=== PATIENT | female | born 1960 | race Caucasian/White ===

== ENCOUNTER 2019-11-14 16:53 | Inpatient (IN) | payer OTHER ==
--- NOTE | 2019-11-14 17:03 | PDOC ---
Rapid Medical Evaluation Chief Complaint: Nausea/Vomiting Time Seen by Provider: 11/14/19 17:01 Medical Evaluation: Allergies Allergy/AdvReac Type Severity Reaction Status Date / Time No Known Allergies Allergy Verified 11/14/19 16:58 11/14/19 17:02 I have performed a brief in-person evaluation of this patient. The patient presents with a chief complaint of:Epigastric pain r/t back w/ n/v. Seen in PMD's office 3 days ago and states blood, stool and urine collected and told she had "an infection in her stomach" and now on triple therapy (amox, lanzaprozole, clarithromycin) for PUD. Pain has improved w/ meds but here because her n/v continues. Pertinent physical exam findings:adamaris uncomfortable w/ minimal ttp to epigastrium I have ordered the following:juan The patient will proceed to the ED for further evaluation. Discharge Disposition - Diagnosis Nausea and vomiting Qualifiers: Vomiting type: unspecified Vomiting Intractability: non-intractable Qualified Code(s): R11.2 - Nausea with vomiting, unspecified - Referrals - Patient Instructions - Post Discharge Activity
[2019-11-14] MEDS ORDERED: ONDANSETRON 4 MG TABLET PO ONE (17:06)
[2019-11-14 17:07] VITALS: BMI 31.8
[2019-11-14] MEDS ORDERED: ONDANSETRON *ODT* 4 MG TABLET ONE (17:19)
[2019-11-14 18:03] LABS: BASO % 0.6 % (0-2.0); EOS % 0.1 % (0-4.5); HEMATOCRIT 46.6 % (32.4-45.2); HEMOGLOBIN 15.3 GM/dL (10.7-15.3); LYMPH % 16.1 % (8-40); MCH 30.2 pg (25.7-33.7); MCHC 32.9 g/dl (32.0-36.0); MEAN PLT VOLUME 9.3 fl (7.5-11.1); MONO % 3.3 % (3.8-10.2); NEUT % 79.9 % (42.8-82.8); PLATELET COUNT 274 K/MM3 (134-434); RBC 5.06 M/mm3 (3.60-5.2); RDW 13.6 % (11.6-15.6)
[2019-11-14 18:23] LABS: ALBUMIN 4.4 g/dl (3.4-5.0); BILIRUBIN,TOTAL 1.3 mg/dL (0.2-1); BLOOD UREA NITROGEN 8.9 mg/dL (7-18); CALCIUM 9.8 mg/dL (8.5-10.1); CREATININE 0.9 mg/dL (0.55-1.3); POTASSIUM 4.4 mmol/L (3.5-5.1); TOT PROT 7.6 g/dl (6.4-8.2)
--- NOTE | 2019-11-14 18:46 | PDOC ---
History of Present Illness - General Chief Complaint: Nausea/Vomiting Stated Complaint: NAUSEA VOMITING Time Seen by Provider: 11/14/19 17:01 - History of Present Illness Initial Comments: Bennett Cui is a 59yo woman with a PMH of constipation, back pain who prsents with RUQ pain and frequent vomiting. She reports that she was seen at [facility] on Tuesday and told that she had gallstones and a gallbladder infection. She was started on flagyl and amoxicillin, which she has been trying to take at home for the past several days. She has had continued vomiting. The emesis is yellow in color; she has not noted bile or blood. She reports that anything she takes PO, she is unable to keep down. She denies any fever, diarrhea, chest pain, SOB , or other new or recent symptoms. Past History - Past Medical History Allergies/Adverse Reactions: Allergies Allergy/AdvReac Type Severity Reaction Status Date / Time No Known Allergies Allergy Verified 11/14/19 16:58 Home Medications: Ambulatory Orders Amoxicillin - [Amoxicillin 500mg Capsule -] 500 mg PO BID 11/14/19 Clarithromycin 500 mg PO BID 11/14/19 Lansoprazole [Prevacid -] 30 mg PO BID 11/14/19 COPD: No - Surgical History Appendectomy: Yes - Immunization History Immunization Up to Date: Yes - Psycho Social/Smoking Cessation Hx Smoking History: Never smoked Number of Cigarettes Smoked Daily: 0 Information on smoking cessation initiated: No Hx Alcohol Use: No Drug/Substance Use Hx: No Substance Use Type: None Review of Systems - Review of Systems Comments:: General: No fevers, no chills, no weight or appetite change, no malaise HEENT: No changes in vision, no changes in hearing, no congestion, no sore throat CV: No chest pain, no palpitations, no LE edema Pulm: No SOB, no cough, no wheezing GI: See HPI : No frequency, no urgency, no dysuria Musc: No back pain, no joint swelling, no recent injury Skin: No rash, no lesions, no erythema Endo: No excessive thirst, no heat/cold intolerance Heme: No unusual bruising or bleeding, no swollen glands Neuro: No syncope, no numbness/tingling, no focal weakness Vasc: No claudication Psych: No recent change in mood, no SI or HI *Physical Exam - Vital Signs Last Vital Signs Temp Pulse Resp BP Pulse Ox 98.0 F 87 17 147/92 98 11/14/19 16:58 11/14/19 16:58 11/14/19 16:58 11/14/19 16:58 11/14/19 16:58 - Physical Exam General: Comfortable, no acute distress HEENT: Atraumatic, PERRL, EOMI, MMM, voice normal, normal neck ROM Cards: RRR, no murmur appreciated Pulm: Comfortable on room air, clear to auscultation bilaterally Abd: Soft, nondistended. Epigastric and RUQ TTP Ext: Atraumatic. No LE edema. ROM intact. WWP Skin: Normal color, no rashes or lesions Neuro: A&Ox3, CN grossly intact, normal speech, motor/sensory grossly intact and symmetric Psych: Mood appropriate to situation ED Treatment Course - LABORATORY CBC & Chemistry Diagram: 11/14/19 17:30 11/14/19 17:30 - ADDITIONAL ORDERS Additional order review: Laboratory Results 11/14/19 11/14/19 17:30 17:30 Sodium 139 Potassium 4.4 Chloride 103 Carbon Dioxide 31 Anion Gap 6 L BUN 8.9 Creatinine 0.9 Est GFR (CKD-EPI)AfAm 82.26 Est GFR (CKD-EPI)NonAf 70.98 Random Glucose 117 H Calcium 9.8 Total Bilirubin 1.3 H AST 27 ALT 39 Alkaline Phosphatase 85 Total Protein 7.6 Albumin 4.4 Lipase 103 11/14/19 17:30 RBC 5.06 MCV 92.0 MCHC 32.9 RDW 13.6 MPV 9.3 Neutrophils % 79.9 D Lymphocytes % 16.1 D Monocytes % 3.3 L Eosinophils % 0.1 D Basophils % 0.6 - RADIOLOGY Radiology Studies Ordered: Category Date Time Status ABDOMEN US [US] Stat Ultrasound 11/14/19 18:36 Ordered - Medications Given in the ED: ED Medications Discontinued Medications Generic Name Dose Route Start Last Admin Trade Name Freq PRN Reason Stop Dose Admin Ondansetron HCl 4 mg 11/14/19 17:06 11/14/19 17:20 Zofran - PO 11/14/19 17:07 4 mg ONCE ONE Administration Medical Decision Making - Medical Decision Making 11/14/19 18:46 Bennett Cui is a 59yo woman with a PMH of constipation, back pain, recently diagnosed with a "gallbladder problem" and started on antibiotics last Tuesday, who presents with persistent RUQ pain and vomiting. - Labs ordered from E. No concerning abnormalities - Zofran given. No vomiting while in the ED - LUQ pain on exam. Will repeat abd US to evaluate gallbladder 11/14/19 20:20 - Ultrasound completed. Several gallstones noted. - Per radiology report, no wall thickening, no bile duct dilation, no pericholecystic fluid - Given normal labs, no sign of cholecystitis on ultrasound, symptoms may be biliary colic with adverse effects of antibiotics - Will reassess, ABHIJEET rivera 11/14/19 21:15 - Reassessed. Still has RUQ tenderness - Spoke to Dr Brody, surgery, regarding persistent pain despite negative labs. Recommending that if pain has been present 5 days, should likely be admitted for HIDA and possible cholecystectomy - On additional questioning, pt confirms that her pain has been present for 5 days without resolving. - Will admit for further workup Discussed with Dr Gina Danielson PGY2 Discharge - Discharge Information Problems reviewed: Yes Clinical Impression/Diagnosis: RUQ pain Nausea and vomiting Qualifiers: Vomiting type: unspecified Vomiting Intractability: non-intractable Qualified Code(s): R11.2 - Nausea with vomiting, unspecified Cholelithiases Qualifiers: Cholelithiasis location: gallbladder Cholecystitis presence: without cholecystitis Biliary obstruction: without biliary obstruction Qualified Code(s) : K80.20 - Calculus of gallbladder without cholecystitis without obstruction Condition: Stable - Admission Yes - Follow up/Referral - Patient Discharge Instructions - Post Discharge Activity
--- NOTE | 2019-11-14 20:04 | PDOC ---
Attending Attestation - Resident Resident Name: JagjitJane - ED Attending Attestation I have performed the following: I have examined & evaluated the patient, The case was reviewed & discussed with the resident, I agree w/resident's findings & plan - HPI HPI: 11/14/19 21:26 see resident hpi - Physicial Exam PE: 11/14/19 21:26 agree with resident exam - Medical Decision Making 11/14/19 21:26 59-year-old female with upper abdominal pain Ultrasound consistent with gallbladder disease with no specific findings consistent with acute cholecystitis There is a mild elevation of patient's total bilirubin Due to persistent pain, case was discussed with surgery who recommends admission for HIDA scan and further evaluation
[2019-11-14] MEDS ORDERED: ACETAMINOPHEN 1000 MG/100 ML VIAL (NON FORMULARY) IVPB ONE (20:35)
[2019-11-14] MEDS ORDERED: SODIUM CHLORIDE 1,000 ML IV SCH ×2 (21:30→22:45)
[2019-11-14] MEDS ORDERED: KETOROLAC TROMETHAMINE 15 MG/ML VIAL IVPUSH PRN (22:32)
[2019-11-14] MEDS ORDERED: ACETAMINOPHEN 325 MG TABLET (FP) PO PRN (22:32)
--- NOTE | 2019-11-14 22:49 | HP ---
CHIEF COMPLAINT: RUQ pain and nausea PCP: Dr Recio HISTORY OF PRESENT ILLNESS: 59 yo F no significant medical history presents to the ED for RUQ pain, nausea and vomiting. pt states these symptoms began 3 weeks ago. she states that the abdominal pain is RUQ and is worse when she eats and with movement. she states that the nausea and vomiting started this week. She states that she saw a doctor earlier last week who prescribed her medications. pt states that she has not been able to eat well. she denies fevers , chills. she denies recent travel ER course was notable for: (1)IVF (2)Acetaminophen (3)Surgery consult Recent Travel: denies PAST MEDICAL HISTORY: none PAST SURGICAL HISTORY: appendectomy, breast surgery, hysterectomy, " intestinal surgery" Social History: Smoking:denies Alcohol:denies Drugs: denies Allergies No Known Allergies Allergy (Verified 11/14/19 16:58) HOME MEDICATIONS: Home Medications Medication Instructions Recorded Amoxicillin - [Amoxicillin 500mg 500 mg PO BID 11/14/19 Capsule -] Clarithromycin 500 mg PO BID 11/14/19 Lansoprazole [Prevacid -] 30 mg PO BID 11/14/19 REVIEW OF SYSTEMS CONSTITUTIONAL: Absent: fever, chills, diaphoresis, generalized weakness, malaise, loss of appetite, weight change HEENT: Absent: rhinorrhea, nasal congestion, throat pain, throat swelling, difficulty swallowing, mouth swelling, ear pain, eye pain, visual changes CARDIOVASCULAR: Absent: chest pain, syncope, palpitations, irregular heart rate, lightheadedness , peripheral edema RESPIRATORY: Absent: cough, shortness of breath, dyspnea with exertion, orthopnea, wheezing, stridor, hemoptysis GASTROINTESTINAL: Present: Abdominal pain, nausea, vomiting Absent:abdominal distension,diarrhea, constipation, melena, hematochezia GENITOURINARY: Absent: dysuria, frequency, urgency, hesitancy, hematuria, flank pain, genital pain MUSCULOSKELETAL: Absent: myalgia, arthralgia, joint swelling, back pain, neck pain SKIN: Absent: rash, itching, pallor HEMATOLOGIC/IMMUNOLOGIC: Absent: easy bleeding, easy bruising, lymphadenopathy, frequent infections ENDOCRINE: Absent: unexplained weight gain, unexplained weight loss, heat intolerance, cold intolerance NEUROLOGIC: Absent: headache, focal weakness or paresthesias, dizziness, unsteady gait, seizure, mental status changes, bladder or bowel incontinence PSYCHIATRIC: Absent: anxiety, depression, suicidal or homicidal ideation, hallucinations. PHYSICAL EXAMINATION Vital Signs - 24 hr 11/14/19 16:58 Temperature 98.0 F Pulse Rate 87 Respiratory 17 Rate Blood Pressure 147/92 O2 Sat by Pulse 98 Oximetry (%) GENERAL: Awake, alert, and fully oriented, in no acute distress. HEAD: Normal with no signs of trauma. EYES: Pupils equal, round and reactive to light, extraocular movements intact, sclera anicteric EARS, NOSE, THROAT: oropharynx clear without exudates. Moist mucous membranes. NECK: Normal range of motion, supple without lymphadenopathy, JVD, or masses. LUNGS: Breath sounds equal, clear to auscultation bilaterally. No wheezes, and no crackles. No accessory muscle use. HEART: Regular rate and rhythm, normal S1 and S2 without murmur, rub or gallop. ABDOMEN: Soft, tender to palpation of RUQ and RLQ. + murphys not distended, normoactive bowel sounds MUSCULOSKELETAL: Normal range of motion at all joints. No bony deformities or tenderness. No CVA tenderness. UPPER EXTREMITIES: 2+ pulses, warm, well-perfused. No cyanosis. No clubbing. No peripheral edema. LOWER EXTREMITIES: 2+ pulses, warm, well-perfused. No calf tenderness. No peripheral edema. NEUROLOGICAL: Cranial nerves II-XII intact. Normal speech. PSYCHIATRIC: Cooperative. Good eye contact. Appropriate mood and affect. SKIN: Warm, dry, normal turgor, no rashes or lesions noted, normal capillary refill. Laboratory Results - last 24 hr 11/14/19 11/14/19 11/14/19 17:30 17:30 17:30 WBC 7.0 RBC 5.06 Hgb 15.3 Hct 46.6 H D MCV 92.0 MCH 30.2 MCHC 32.9 RDW 13.6 Plt Count 274 MPV 9.3 Absolute Neuts (auto) 5.6 Neutrophils % 79.9 D Lymphocytes % 16.1 D Monocytes % 3.3 L Eosinophils % 0.1 D Basophils % 0.6 Nucleated RBC % 0 Sodium 139 Potassium 4.4 Chloride 103 Carbon Dioxide 31 Anion Gap 6 L BUN 8.9 Creatinine 0.9 Est GFR (CKD-EPI)AfAm 82.26 Est GFR (CKD-EPI)NonAf 70.98 Random Glucose 117 H Calcium 9.8 Total Bilirubin 1.3 H AST 27 ALT 39 Alkaline Phosphatase 85 Total Protein 7.6 Albumin 4.4 Lipase 103 ASSESSMENT/PLAN: 59 yo F with no PMH presents with abdominal pain, nausea, vomiting. Admitted to medicine for cholelithiasis Cholelithiasis - U/S findings above. - no common bile duct dilation - no leukocytosis, no fevers - Surgery ( Dr. Brody) consulted and recommends HIDA and possibly cholecystectomy -continue close monitoring -will continue prevacid, amox, clarithro as it is most [facility]. [facility] - monitor lytes - continue IVF @ 100mls/ hr - NPO for possible cholecystecomy DVT ppx: SCDs Dispo: Admit to Medicine ATTENDING PHYSICIAN STATEMENT I saw and evaluated the patient. I reviewed the resident's note and discussed the case with the resident. I agree with the resident's findings and plan as documented. SUBJECTIVE: OBJECTIVE: ASSESSMENT AND PLAN:
[2019-11-14 22:59] LABS: EPI CELLS 5.1 /HPF (0-5/HPF); HYALINE CASTS 2 /lpf (0-8); URINE APPEARANCE CLEAR; URINE BACTERIA 2.9 /hpf (NEGATIVE); URINE BILIRUBIN NEGATIVE (NEGATIVE); URINE COLOR YELLOW; URINE GLUCOSE (UA) NEGATIVE (NEGATIVE); URINE KETONE 1+ (NEGATIVE); URINE LEUK ESTERASE TRACE (NEGATIVE); URINE NITRITE NEGATIVE (NEGATIVE); URINE PROTEIN NEGATIVE (NEGATIVE); URINE RBC 50 /hpf (0-4); URINE UROBILINOGEN 0.2 mg/dL (0.2-1.0); URINE WBC 17 /hpf (0-5)
--- NOTE | 2019-11-14 23:23 | PN ---
Teaching Attending Note Name of Resident: Neha Salazar ATTENDING PHYSICIAN STATEMENT I saw and evaluated the patient. I reviewed the resident's note and discussed the case with the resident. I agree with the resident's findings and plan as documented. SUBJECTIVE: 59yo woman with a PMH of constipation, back pain complains of right upper quadrant pain with multiple Nonbilious nonbloody episodes of vomiting. Patient was seen on 11/09 at [facility] for similar complaints and was sent home on Flagyl and amoxicillin. She was told that she might have possible cholecystitis. Her symptoms have worsened for the past several days and she had continued vomiting, nonbloody, nonbilious. Unable to tolerate p.o. Denied any fever or diarrhea or tenderness of breath. OBJECTIVE: Last Vital Signs Temp Pulse Resp BP Pulse Ox 96.8 F L 63 17 102/64 100 11/14/19 23:21 11/14/19 23:21 11/14/19 16:58 11/14/19 23:21 11/14/19 23:21 GENERAL: Well developed, well nourished. Awake and alert. No acute distress. HEENT: Normocephalic, atraumatic. PERRLA, EOMI. No conjunctival pallor. Sclera are non- icteric. Moist mucous membranes. Oropharynx is clear. NECK: Supple. Full ROM. No JVD. Carotid pulses 2+ and symmetric, without bruits. No thyromegaly. No lymphadenopathy. CARDIOVASCULAR: Regular rate and rhythm. No murmurs, rubs, or gallops. Distal pulses are 2+ and symmetric. PULMONARY: No evidence of respiratory distress. Lungs clear to auscultation bilaterally. No wheezing, rales or rhonchi. ABDOMINAL: Soft. Right upper quadrant tenderness on palpation. Non-distended. No rebound or guarding. No organomegaly. Normoactive bowel sounds. MUSCULOSKELETAL Normal range of motion at all joints. No bony deformities or tenderness. No CVA tenderness. EXTREMITIES: No cyanosis. No clubbing. No edema. No calf tenderness. SKIN: Warm and dry. Normal capillary refill. No rashes. No jaundice. NEUROLOGICAL: Alert, awake, appropriate. Cranial nerves 2-12 intact. No deficits to light touch and temperature in face, upper extremities and lower extremities. No motor deficits in the in face, upper extremities and lower extremities. Normoreflexic in the upper and lower extremities. Normal speech. Toes are down- going bilaterally. Gait is normal without ataxia. PSYCHIATRIC: Cooperative. Good eye contact. Appropriate mood and affect. Abnormal Lab Results 11/14/19 11/14/19 11/14/19 17:30 17:30 22:36 Hct 46.6 H D Monocytes % 3.3 L Anion Gap 6 L Random Glucose 117 H Total Bilirubin 1.3 H Urine Ketones 1+ H Urine Blood 2+ H Imaging studies reviewed Ultrasound report of right upper quadrant was appreciated. Cholelithiasis was seen without definite sonographic evidence of acute cholecystitis. There was no definite biliary tract dilatation. ASSESSMENT AND PLAN: 59-year-old woman with multiple episodes of nausea and vomiting. Clinically appears to be cholecystitis although No radiological evidence at this time. surgery recommended further evaluation with HIDA scan. Mild hyper bilirubinemia suggest possible hepatobiliary involvement. No fever or leukocytosis to suggest infection at this time. No role for antibiotics at this time. Admit to [facility] Surgery consult IV fluid hydration Zofran if continued nausea and vomiting Empiric Pepcid We will order HIDA scan Keep n.p.o. for now for possible cholecystectomy BGM's every 6 hours Hepatic paneltrend EKG DVT prophylaxis with SCDs
[2019-11-15] MEDS ORDERED: ACETAMINOPHEN 325 MG TABLET (FP) ONE (03:15)
[2019-11-15] MEDS ORDERED: KETOROLAC TROMETHAMINE 15 MG/ML VIAL ONE (03:16)
[2019-11-15] MEDS ORDERED: DEXTROSE 50%-WATER - 25 GM/50 ML VIAL IVPUSH ONE (06:05)
[2019-11-15 07:09] LABS: BASO % 0.2 % (0-2.0); EOS % 2.7 % (0-4.5); HEMOGLOBIN 13.7 GM/dL (10.7-15.3); LYMPH % 27.1 % (8-40); MCH 30.5 pg (25.7-33.7); MCHC 33.5 g/dl (32.0-36.0); MEAN CELL VOLUME 91.1 fl (80-96); MONO % 6.2 % (3.8-10.2); NEUT % 63.8 % (42.8-82.8); PLATELET COUNT 216 K/MM3 (134-434); WHITE BLOOD COUNT 6.7 K/mm3 (4.0-10.0)
[2019-11-15 07:15] LABS: INR 1.04 (0.83-1.09); PROTHROMBIN TIME (PATIENT) 12.3 SEC (9.7-13.0)
[2019-11-15 07:18] LABS: ACTIVATED PTT 33.8 SECONDS (25.2-36.5)
--- NOTE | 2019-11-15 07:33 | CONSULT ---
- Consultation REQUESTING PROVIDER: CONSULT REQUEST: We have been asked to surgically evaluate this patient for cholelithiasis/ acute cholecystitis PCP:Bennett Jacobs MD HISTORY OF PRESENT ILLNESS: Bennett Cui is a 59yo woman with a PMH of constipation, back pain who prsents with RUQ pain and frequent vomiting. She reports that she was seen at [facility] on Tuesday and told that she had gallstones and a gallbladder infection. She was started on flagyl and amoxicillin, which she has been trying to take at home for the past several days. She has had continued vomiting and three episodes of diarrhea. The emesis is yellow in color; she has not noted bile or blood. She reports that anything she takes PO, she is unable to keep down. She denies any fever, chest pain, SOB , or other new or recent symptoms. She states that she has experienced this pain in the RUQ before but did not go the the hospital for it. Past History - Past Medical History Allergies/Adverse Reactions: Allergies Allergy/AdvReac Type Severity Reaction Status Date / Time No Known Allergies Allergy Verified 11/14/19 16:58 Home Medications: Ambulatory Orders Amoxicillin - [Amoxicillin 500mg Capsule -] 500 mg PO BID 11/14/19 Clarithromycin 500 mg PO BID 11/14/19 Lansoprazole [Prevacid -] 30 mg PO BID 11/14/19 COPD: No - Surgical History Appendectomy: Yes - Immunization History Immunization Up to Date: Yes - Psycho Social/Smoking Cessation Hx Smoking History: Never smoked Number of Cigarettes Smoked Daily: 0 Information on smoking cessation initiated: No Hx Alcohol Use: No Drug/Substance Use Hx: No Substance Use Type: None Review of Systems - Review of Systems Comments:: General: No fevers, no chills, no weight or appetite change, no malaise HEENT: No changes in vision, no changes in hearing, no congestion, no sore throat CV: No chest pain, no palpitations, no LE edema Pulm: No SOB, no cough, no wheezing GI: See HPI : No frequency, no urgency, no dysuria Musc: no joint swelling, no recent injury Skin: No rash, no lesions, no erythema Endo: No excessive thirst, no heat/cold intolerance Heme: No unusual bruising or bleeding, no swollen glands Neuro: No syncope, no numbness/tingling, no focal weakness Vasc: No claudication Psych: No recent change in mood, no SI or HI *Physical Exam - Vital Signs Last Vital Signs Temp Pulse Resp BP Pulse Ox 98.0 F 87 17 147/92 98 11/14/19 16:58 11/14/19 16:58 11/14/19 16:58 11/14/19 16:58 11/14/19 16:58 - Physical Exam General: Comfortable, no acute distress HEENT: Atraumatic, PERRL, voice normal, normal neck ROM Pulm: unlabore resp on RA, Abd: Obese, Soft, nondistended. Epigastric and RUQ TTP Ext: Atraumatic. moving all extremities without limitation. Skin: Normal color, no rashes or lesions Neuro: A&Ox3, CN grossly intact, normal speech, motor/sensory grossly intact and symmetric Psych: Mood appropriate to situation CBC, BMP 11/15/19 06:45 Abnormal Lab Results 11/14/19 11/14/19 11/14/19 17:30 17:30 22:36 Hct 46.6 H D Monocytes % 3.3 L Anion Gap 6 L Random Glucose 117 H Total Bilirubin 1.3 H Urine Ketones 1+ H Urine Blood 2+ H Ultrasound consistent with cholelithiasis. Problem List - Problems (1) Cholelithiases Assessment/Plan: 59yo with cholelithiasis, with acute cholecystitis upon clincal correlation and mild elevation of patient's total bilirubin. Patient will need laparoscopic cholecystectomy today. 1) cancel HIDA scan per Dr Brody 2) NPO for OR with Dr Brody today 11/15 3) Zosyn started for ABX coverage 4) pain control and antiemetics 5) Surgical time pending. Code(s): K80.20 - CALCULUS OF GALLBLADDER W/O CHOLECYSTITIS W/O OBSTRUCTION Qualifiers: Cholelithiasis location: gallbladder Cholecystitis presence: without cholecystitis Biliary obstruction: without biliary obstruction Qualified Code(s): K80.20 - Calculus of gallbladder without cholecystitis without obstruction
[2019-11-15 07:47] LABS: ALBUMIN 3.6 g/dl (3.4-5.0); BILIRUBIN,TOTAL 1.4 mg/dL (0.2-1); BLOOD UREA NITROGEN 9.7 mg/dL (7-18); CALCIUM 8.7 mg/dL (8.5-10.1); CREATININE 1.1 mg/dL (0.55-1.3); MAGNESIUM 2.1 mg/dL (1.8-2.4); PHOSPHOROUS 3.2 mg/dL (2.5-4.9); POTASSIUM 4.1 mmol/L (3.5-5.1); TOT PROT 6.1 g/dl (6.4-8.2)
[2019-11-15] MEDS ORDERED: PIPERACILLIN/TAZOB 4.5 GM 4.5 GM in DEXTROSE 5%-WATER 100 ML IVPB ONE (09:00)
[2019-11-15] MEDS ORDERED: DEXTROSE 5%-LACTATED RINGERS 1,000 ML IV SCH ×2 (09:00→12:42)
[2019-11-15] MEDS ORDERED: PIPERACILLIN/TAZOB 4.5 GM 4.5 GM/100 ML BAG IVPB ONE (09:04)
[2019-11-15] MEDS ORDERED: PANTOPRAZOLE 40 MG TABLET (FP) PO SCH (10:00)
[2019-11-15] MEDS ORDERED: FAMOTIDINE 20 MG TABLET PO SCH (10:00)
[2019-11-15] MEDS ORDERED: CLARITHROMYCIN 500 MG TABLET (UD) PO SCH (10:00)
[2019-11-15] MEDS ORDERED: PIPERACILLIN/TAZOB 4.5 GM 4.5 GM in DEXTROSE 5%-WATER 100 ML IVPB SCH (10:00)
[2019-11-15] MEDS ORDERED: AMOXICILLIN 500 MG CAPSULE (FP) PO SCH (10:00)
[2019-11-15] MEDS ORDERED: PROPOFOL 20 ML ONE ×2 (10:18→12:02)
[2019-11-15] MEDS ORDERED: MIDAZOLAM HCL 2 MG/2 ML SINGLE DOSE VIAL ONE (10:18)
[2019-11-15] MEDS ORDERED: fentaNYL CITRATE 250 MCG/5 ML VIAL ONE (10:18)
[2019-11-15] MEDS ORDERED: ROCURONIUM BROMIDE 50 MG/5 ML SYRINGE ONE (10:19)
--- NOTE | 2019-11-15 10:26 | PN ---
Teaching Attending Note Name of Resident: Augustus Rodrigez ATTENDING PHYSICIAN STATEMENT I saw and evaluated the patient. I reviewed the resident's note and discussed the case with the resident. I agree with the resident's findings and plan as documented. Seen and examined; please see resident note for further historical information. I personally verified all [place] historical information and exam findings. Personally interpreted all imaging and diagnostics and reviewed appropriate consults. I reviewed all labs and vital signs as per resident note and EMR as documented. I agree with the above assessment and plan unless supplemented by myself in the following. 10 item review of systems completed and is negative aside from as discussed in the subjective data in my own/the resident documentation. VS, labs, imaging reviewed NAD, AAO, resting comfortably in bed. RRR s1/2 no mgr Normal muscle tone, moves all 5 extremities with normal apparent strength Neck is supple, trachea midline, no haydee LN Lungs CTAB with sym expansion Right-sided tenderness with +BS no haydee organomegaly CN2-12 wnl; no FND NC AT EOMI PERRLA Normal mood, appropriate behavior, euthymic affect No skin breakdown or rashes noted Assessment and plan: Patient presents to the hospital with abdominal pain. Found to have suspicion for consult cholecystitis with cholelithiasis noted on imaging. Patient was found intraoperatively to have acute cholecystitis with pale distended edematous gallbladder and ventral hernia at the falciform and umbilical hernia as well. Is doing well postop. We will follow-up further recommendations per surgery. Discharge planning within 24 to 48 hours
[2019-11-15] MEDS ORDERED: oxyCODONE HCL 5 MG TABLET PO PRN (11:28)
[2019-11-15] MEDS ORDERED: morphine SULFATE 4 MG/ML VIAL IVPB PRN ×2 (11:28→17:24)
[2019-11-15] MEDS ORDERED: IBUPROFEN 800 MG/8 ML IJ IVPB ONE (11:28)
[2019-11-15] MEDS ORDERED: ONDANSETRON 4 MG/2 ML VIAL IVPUSH PRN (11:28)
[2019-11-15] MEDS ORDERED: IBUPROFEN 800 MG/8 ML IJ IVPB PRN (11:28)
[2019-11-15] MEDS ORDERED: LACTATED RINGERS SOLUTION 1,000 ML IV SCH (11:30)
--- NOTE | 2019-11-15 11:49 | EKG ---
Test Reason : Blood Pressure : / mmHG Vent. Rate : 062 BPM Atrial Rate : 062 BPM P-R Int : 132 ms QRS Dur : 084 ms QT Int : 440 ms P-R-T Axes : 010 048 051 degrees QTc Int : 446 ms NORMAL SINUS RHYTHM NORMAL ECG WHEN COMPARED WITH ECG OF 08-FEB-2014 16:43, NO SIGNIFICANT CHANGE WAS FOUND Confirmed by YOLY ROJAS MD ([id number]) on 11/15/2019 11:49:42 AM Referred By: Confirmed By:YOLY ROJAS MD
[2019-11-15] MEDS ORDERED: NEOSTIGMINE METHYLSULFATE 0.5 MG/ML - 10 ML MDV ONE (11:53)
[2019-11-15] MEDS ORDERED: GLYCOPYRROLATE 0.2 MG/1 ML VIAL ONE (11:54)
--- NOTE | 2019-11-15 12:07 | CONS ---
DATE OF CONSULTATION: 11/15/2019 REASON FOR CONSULTATION: Acute cholecystitis, cholelithiasis. This is an emergency room consultation at the request of the emergency room physician. BRIEF HISTORY: This is a 59-year-old female who has had several days of right upper quadrant pain and nausea. She was seen at [facility] Emergency Room where she was diagnosed with acute cholecystitis and sent home on antibiotics. She then came to [facility] because of persistent pain. Here she had an ultrasound, which confirmed gallstones with borderline thickening. The gallbladder was distended. There was no pericholecystic fluid. The bile duct was normal size. Her labs were unremarkable. She was admitted for persistent pain. Repeat labs this morning do not show an increase in her liver function tests, and the patient is still in pain. Request was made for surgical evaluation. PAST MEDICAL HISTORY: Significant for constipation and back pain. PAST SURGICAL HISTORY: Includes a hysterectomy for fibroids as well as an appendectomy. SOCIAL HISTORY: Negative for alcohol. Negative for tobacco. FAMILY HISTORY: Noncontributory. ALLERGIES: She has no known drug allergies. MEDICATIONS: She takes no home medications except what was prescribed by the [facility] Emergency Room. REVIEW OF SYSTEMS: General: Denies fatigue or malaise. Cardiac: Denies chest pain or palpitations. Respiratory: Denies shortness of breath or wheeze. Gastrointestinal: As in HPI. Admits to nausea. Admits to vomiting. Denies recent weight loss. Denies blood in her stool. Denies diarrhea. Denies blood in her vomit. Genitourinary: Denies dysuria. Musculoskeletal: Denies joint pain. Psychiatric: Denies anxiety, depression, or hearing voices. PHYSICAL EXAMINATION: General: This is an obese 59-year-old female in no distress. Vital Signs: She is afebrile. Has been since admission. HEENT: Her head is normocephalic. Sclerae anicteric. Neck: Supple. Chest: Clear. Abdomen: Soft. There is a well-healed Pfannenstiel incision. There is perhaps a laparoscopic scar at her umbilicus. She has significant right upper quadrant tenderness with rebound and guarding. The rest of her abdominal exam is benign. Extremities: No edema. DIAGNOSTIC DATA: Review of her laboratory, her white blood cell count is 6.7. Her chemistries are unremarkable. Her urinalysis is unremarkable. ASSESSMENT: This is a 59-year-old female with right upper quadrant pain, right upper quadrant tenderness with rebound. Ultrasound findings of a distended gallbladder with gallstones and mild thickening. She has been treated on antibiotics for acute cholecystitis. Clinically, this is acute cholecystitis failing medical management. At this point, we will proceed with cholecystectomy. Risks and benefits of surgery have been explained to the patient in detail. These are including, but not limited to, the possibility of conversion to open, the possibility of common bile duct injury, the possibility of cystic duct stump melissa, the possibility of injury to viscera, the possibility of blood loss requiring blood transfusion, possibility of future hernia, possibility of future obstruction plus a multitude of medical risks including, but not limited to, cardiac, neurologic, pulmonary, and vascular complications, even . The patient understands these risks and is agreeable to surgery. She has also been offered continued medical management of cholecystitis as well as percutaneous drainage and declines both options. She prefers a more definitive nature of surgery, the likely decreased length of stay, and the prevention of future recurrence. At this point, she is on Zosyn antibiotic, which she received this morning, and she will continue antibiotic and make plans for surgery. DO SOTO VALENZUELA/[id number]
--- NOTE | 2019-11-15 12:19 | OP ---
Operative Note - Note: Operative Date: 11/15/19 Pre-Operative Diagnosis: acute cholecystitis, cholelithiasis Operation: laparoscopic cholecystectomy, lavage Findings: acute cholecystitis, pale distended, edematous gb, ventral hernia at falciform, umbilical hernia Post-Operative Diagnosis: Same as Pre-op Surgeon: Augustus Brody Rug Measurer: Francisco Osorio Anesthesiologist/FRESH MEAT GRADER: Linwood Sales Specimens Removed: gb Estimated Blood Loss (mls): 10 Operative Report Dictated: Yes
--- NOTE | 2019-11-15 12:22 | SURG ---
Surgery Video Engineer Note Video Engineer: Francisco Osorio PA-C Date of Service: 11/15/19 Diagnosis: acute cholecystitis, cholelithiasis Procedure: laparoscopic cholecystectomy, lavage I was present for the entirety of the operative procedure. For further detail, please refer to operative report. Visit type - Case Type Case Type: ED Admission - Emergency Emergency Visit: Yes ED Registration Date: 11/14/19 Care time: The patient presented to the Emergency Department on the above date and was hospitalized for further evaluation of their emergent condition. - New patient This patient is new to me today: Yes Date on this admission: 11/15/19 - Critical Care Critical Care patient: No
[2019-11-15] MEDS ORDERED: ACETAMINOPHEN 325 MG TABLET (FP) PO PRN (12:42)
[2019-11-15] MEDS ORDERED: KETOROLAC TROMETHAMINE 15 MG/ML VIAL IVPUSH PRN (12:42)
--- NOTE | 2019-11-15 12:57 | PN ---
Physical Exam: SUBJECTIVE: Patient seen and examined at the bedside. Patient stated that she continued to have abdominal pain and did not feel like eating. She endorsed minor nausea and no further vomiting since yesterday. She denied fevers, chills , diarrhea, constipation, chest pain, sob, dizziness, lightheadedness, visual changes, dysuria, hematuria, frequency, hesitancy. OBJECTIVE: Vital Signs Period Temp Pulse Resp BP Sys/Rios Pulse Ox Last 24 Hr 96.8 F-98.0 F 63-87 16-18 102-147/55-92 98-100 GENERAL: The patient is awake, alert, and fully oriented, in no acute distress. Hong Konger speaking. HEAD: Normal with no signs of trauma. EYES: PERRL, extraocular movements intact, sclera anicteric, conjunctiva clear. ENT: Oropharynx clear without exudates, moist mucous membranes. NECK: Trachea midline, full range of motion, supple. LUNGS: Breath sounds equal, clear to auscultation bilaterally, no wheezes, no crackles, no accessory muscle use. HEART: Regular rate and rhythm, S1, S2 without murmur, rub. ABDOMEN: Soft, tender in the RUQ, Beebe's positive, nondistended, normoactive bowel sounds, no guarding, no rebound, no masses. EXTREMITIES: 2+ pulses, warm, well-perfused, no edema. NEUROLOGICAL: Cranial nerves II through XII grossly intact. 5/5 muscle strength bilaterally upper and lower extremities. PSYCH: Normal mood, normal affect. SKIN: Warm, dry, normal turgor, no rashes or lesions noted. Laboratory Results - last 24 hr 11/14/19 11/14/19 11/14/19 17:30 17:30 17:30 WBC 7.0 RBC 5.06 Hgb 15.3 Hct 46.6 H D MCV 92.0 MCH 30.2 MCHC 32.9 RDW 13.6 Plt Count 274 MPV 9.3 Absolute Neuts (auto) 5.6 Neutrophils % 79.9 D Lymphocytes % 16.1 D Monocytes % 3.3 L Eosinophils % 0.1 D Basophils % 0.6 Nucleated RBC % 0 PT with INR INR PTT (Actin FS) Sodium 139 Potassium 4.4 Chloride 103 Carbon Dioxide 31 Anion Gap 6 L BUN 8.9 Creatinine 0.9 Est GFR (CKD-EPI)AfAm 82.26 Est GFR (CKD-EPI)NonAf 70.98 POC Glucometer Random Glucose 117 H Calcium 9.8 Phosphorus Magnesium Total Bilirubin 1.3 H AST 27 ALT 39 Alkaline Phosphatase 85 Total Protein 7.6 Albumin 4.4 Lipase 103 Urine Color Urine Appearance Urine pH Ur Specific [place] Urine Protein Urine Glucose (UA) Urine Ketones Urine Blood Urine Nitrite Urine Bilirubin Urine Urobilinogen Ur Leukocyte Esterase Urine WBC (Auto) Urine RBC (Auto) Urine Casts (Auto) U Epithel Cells (Auto) Urine Bacteria (Auto) Blood Type Antibody Screen 11/14/19 11/15/19 11/15/19 22:36 05:59 06:45 WBC 6.7 RBC 4.50 Hgb 13.7 Hct 41.0 MCV 91.1 MCH 30.5 MCHC 33.5 RDW 14.0 Plt Count 216 D MPV 9.0 Absolute Neuts (auto) 4.3 Neutrophils % 63.8 D Lymphocytes % 27.1 D Monocytes % 6.2 D Eosinophils % 2.7 D Basophils % 0.2 Nucleated RBC % 0 PT with INR INR PTT (Actin FS) Sodium Potassium Chloride Carbon Dioxide Anion Gap BUN Creatinine Est GFR (CKD-EPI)AfAm Est GFR (CKD-EPI)NonAf POC Glucometer 74 Random Glucose Calcium Phosphorus Magnesium Total Bilirubin AST ALT Alkaline Phosphatase Total Protein Albumin Lipase Urine Color Yellow Urine Appearance Clear Urine pH 7.0 D Ur Specific [place] 1.023 Urine Protein Negative Urine Glucose (UA) Negative Urine Ketones 1+ H Urine Blood 2+ H Urine Nitrite Negative Urine Bilirubin Negative Urine Urobilinogen 0.2 Ur Leukocyte Esterase Trace Urine WBC (Auto) 17 Urine RBC (Auto) 50 Urine Casts (Auto) 2 U Epithel Cells (Auto) 5.1 Urine Bacteria (Auto) 2.9 Blood Type Antibody Screen 11/15/19 11/15/19 11/15/19 06:45 06:45 06:45 WBC RBC Hgb Hct MCV MCH MCHC RDW Plt Count MPV Absolute Neuts (auto) Neutrophils % Lymphocytes % Monocytes % Eosinophils % Basophils % Nucleated RBC % PT with INR 12.30 INR 1.04 PTT (Actin FS) 33.8 Sodium 141 Potassium 4.1 Chloride 107 Carbon Dioxide 30 Anion Gap 5 L BUN 9.7 Creatinine 1.1 Est GFR (CKD-EPI)AfAm 64.54 Est GFR (CKD-EPI)NonAf 55.69 POC Glucometer Random Glucose 160 H Calcium 8.7 Phosphorus 3.2 Magnesium 2.1 Total Bilirubin 1.4 H AST 22 ALT 29 Alkaline Phosphatase 72 Total Protein 6.1 L Albumin 3.6 Lipase Urine Color Urine Appearance Urine pH Ur Specific [place] Urine Protein Urine Glucose (UA) Urine Ketones Urine Blood Urine Nitrite Urine Bilirubin Urine Urobilinogen Ur Leukocyte Esterase Urine WBC (Auto) Urine RBC (Auto) Urine Casts (Auto) U Epithel Cells (Auto) Urine Bacteria (Auto) Blood Type A POSITIVE Antibody Screen Negative Active Medications Generic Name Dose Route Start Last Admin Trade Name Freq PRN Reason Stop Dose Admin Acetaminophen 650 mg 11/15/19 12:42 Tylenol - PO Q6H PRN PAIN LEVEL 6-10 Enoxaparin Sodium 40 mg 11/16/19 10:00 Lovenox - SQ DAILY [facility] Fentanyl 50 mcg 11/15/19 11:28 Sublimaze Injection - IVPUSH 11/16/19 11:27 [id number] PRN PAIN-PACU ORDER X 4 DOSES ONLY Lactated Ringer's 1,000 mls @ 125 mls/hr 11/15/19 11:30 Lactated Ringers Solution IV ASDIR [facility] Piperacillin Sod/Tazobactam 50 mls @ 100 mls/hr 11/15/19 18:00 Sod 3.375 gm/ Dextrose IVPB 11/16/19 10:29 Q8H-IV CHANEL Protocol Dextrose/Lactated Ringer's 1,000 mls @ 75 mls/hr 11/15/19 12:42 D5-Lr - IV ASDIR [facility] Ibuprofen 800 mg 11/15/19 11:28 Caldolor Injection - IVPB 11/16/19 11:27 ONCE PRN PAIN LEVEL 1-5 Ketorolac Tromethamine 15 mg 11/15/19 12:42 Toradol Injection - IVPUSH 11/19/19 22:31 Q6H PRN PAIN LEVEL 7 - 10 Morphine Sulfate 8 mg 11/15/19 11:28 Morphine Sulfate IVPB Q3H PRN PAIN LEVEL 7 - 10 Ondansetron HCl 4 mg 11/15/19 11:28 Zofran Injection IVPUSH 11/16/19 11:27 Q6H PRN NAUSEA AND/OR VOMITING Oxycodone HCl 7.5 mg 11/15/19 11:28 Roxicodone - PO Q4H PRN PAIN LEVEL 4 - 6 Pantoprazole Sodium 40 mg 11/16/19 10:00 Protonix Iv IVPUSH DAILY CHANEL ASSESSMENT/PLAN: Bennett Cui is a 59 year old female with no known past medical history admitted to for biliary colic. Biliary Colic - U/S noting cholelithiasis w/o evidence of acute cholecystitis, no biliary duct dilation - Surgery consulted and took patient for cholecystectomy - Rod Score 0.0%, RCRI Score 0 points - received pre-op antibiotics, Zosyn - continue close monitoring - continue to monitor bilirubin and LFTs Hx of H. Pylori - as diagnosed at outside hospital - will restart prevacid, amoxicillin, clarithromycin upon resumption of PO intake and completion of post-op antibiotics DVT ppx - SCDs - early ambulation F/E/N - LR at 125mls/ hr - continue to monitor electrolytes and replete as necessary - NPO, advance diet as per surgery Dispo - continue to monitor on med-surg Visit type - Emergency Visit Emergency Visit: Yes ED Registration Date: 11/14/19 Care time: The patient presented to the Emergency Department on the above date and was hospitalized for further evaluation of their emergent condition. - New Patient This patient is new to me today: Yes Date on this admission: 11/15/19 - Critical Care Critical Care patient: No
--- NOTE | 2019-11-15 12:57 | OP ---
DATE OF OPERATION: 11/15/2019 PREOPERATIVE DIAGNOSIS: Acute cholecystitis, cholelithiasis. POSTOPERATIVE DIAGNOSIS: Acute cholecystitis, cholelithiasis. PROCEDURE: Laparoscopic cholecystectomy, lavage. SURGEON: Augustus Brody DO CRAWLER CRANE OPERATOR: STEPHAN Solares ANESTHESIOLOGIST: Linwood Sales MD (general) SPECIMEN: Gallbladder. FINDINGS: A thickened, inflamed, edematous gallbladder consistent with acute cholecystitis. Also, there was a ventral hernia at the falciform ligament containing omentum, which was not addressed. Also, an umbilical hernia above the incision, which was also not addressed. BLOOD LOSS: Minimal. DRAINS: None. COMPLICATIONS: None. BRIEF HISTORY: This is a 59-year-old, female who presented to [facility] with signs and symptoms of acute cholecystitis. She presents now for surgery. PROCEDURE: The patient was in the supine position. After general anesthesia was initiated, the abdomen was prepped and draped in sterile fashion. Zosyn had already been given. Next, a vertical incision was made infraumbilical with a scalpel used to go through skin and subcutaneous tissue. The fascia was then lifted with a Janny clamp. A Veress needle was inserted and a pneumoperitoneum was created. Next, an 11-mm trocar was placed. The patient was noted to have a ventral hernia at this location, which was not addressed. A 10-mm, 0-degree laparoscope was placed, followed by insertion of an additional 11-mm trocar subxiphoid. There was noted to be a hernia next to this trocar site with a piece of omentum stuck to it right at the inferior aspect of the falciform ligament. This, too, was not addressed. Two 5-mm trocars were placed in the right upper quadrant. Attention was turned toward the gallbladder. It was distended, edematous, pink in color. Veress needle decompression was done with a bile-filled, obstructed gallbladder. The fundus was then lifted cephalad. The infundibulum retracted laterally. The peritoneal peel was dissected down, exposing a small cystic duct and cystic artery. Both were clipped and divided. The gallbladder was then liberated from the liver bed using electrocautery. Hemostasis was maintained using electrocautery. A limited lavage was done and all return was clear. The gallbladder was placed in a specimen bag, removed through the infraumbilical trocar site, and sent to Pathology marked as specimen. A mild fascial dilatation was required, in order to deliver the gallbladder. Next, the fascia of the infraumbilical trocar site was closed with multiple interrupted 0 Vicryl sutures. The ventral hernia above this was not addressed. The four skin incisions were then closed with Biosyn and a Dermabond dressing was placed. Overall, the patient tolerated procedure well. There were no complications. The patient's disposition was to likely be discharged home the next day off antibiotics. DO SOTO VALENZUELA/[id number] MTDD
[2019-11-15] MEDS ORDERED: PIPERACILLIN/TAZOBACTAM 3.375 GM VIAL IVPB ONE (17:38)
[2019-11-15] MEDS ORDERED: DEXTROSE 5%-WATER - 50 ML IVPB ONE (17:39)
[2019-11-15] MEDS: PIPERACILLIN/TAZOB 3.375 GM 3.375 GM in DEXTROSE 5%-WATER - 50 ML IVPB SCH (17:40)
[2019-11-15] MEDS: ONDANSETRON 4 MG TABLET PO SCH ×2 (17:41→21:42)
[2019-11-16] MEDS ORDERED: PIPERACILLIN/TAZOBACTAM 3.375 GM VIAL IVPB ONE ×2 (02:36→10:26)
[2019-11-16] MEDS ORDERED: DEXTROSE 5%-WATER - 50 ML IVPB ONE ×2 (02:36→10:26)
[2019-11-16] MEDS: PIPERACILLIN/TAZOB 3.375 GM 3.375 GM in DEXTROSE 5%-WATER - 50 ML IVPB SCH ×3 (02:56→10:48)
[2019-11-16] MEDS ORDERED: PT OWN MED DRAWER 7, Y5N ONE (03:11)
[2019-11-16] MEDS: ONDANSETRON 4 MG TABLET PO SCH (05:53)
[2019-11-16] MEDS ORDERED: ONDANSETRON 4 MG TABLET PO PRN (06:47)
--- NOTE | 2019-11-16 08:56 | PN ---
Progress Note (short form) - Note Progress Note: SURGERY 59yo F s/p Lap sulaiman POD 1, pt seen and examined at bedside. Pt complains of mild RUQ pain, but states is much improved. Pt denies fever, chills, n/v. Pt tolerating PO and urinating well. Last Vital Signs Temp Pulse Resp BP Pulse Ox 97.4 F L 68 18 107/60 100 11/16/19 06:47 11/16/19 06:47 11/16/19 08:28 11/16/19 06:47 11/16/19 08:28 CBC, BMP 11/15/19 06:45 11/15/19 06:45 PE: Gen: A&O x3 Resp: breathing comfortably Abd: soft, nondistended, mild RUQ tenderness Ext: no edema Problem List - Problems (1) Cholecystitis Assessment/Plan: Plan -pt appears to be doing well, pt cleared for discharge from Surgery standpoint. -pt should follow up with Dr. Brody in the office in 1-2 weeks for postop check. Pt discussed with Dr. Brody who agrees with plan Code(s): K81.9 - CHOLECYSTITIS, UNSPECIFIED
[2019-11-16] MEDS ORDERED: ENOXAPARIN NA (PORCINE) 40 MG/0.4 ML DISP.SYRIN SQ SCH (10:00)
[2019-11-16] MEDS: PANTOPRAZOLE SODIUM 40 MG VIAL IVPUSH SCH ×2 (10:30→10:47)
[2019-11-16] MEDS ORDERED: AMOXICILLIN 500 MG CAPSULE (FP) PO SCH (11:00)
[2019-11-16] MEDS ORDERED: PANTOPRAZOLE 40 MG TABLET (FP) PO ONE (11:00)
[2019-11-16] MEDS ORDERED: CLARITHROMYCIN 500 MG TABLET (UD) PO SCH (11:00)
[2019-11-16 11:58] VITALS: BP 113/67; PULSE 62; TEMP 98
--- NOTE | 2019-11-16 14:38 | DS ---
Physical Exam: SUBJECTIVE: Patient seen and examined at the bedside. Patient stated she was feeling well after the surgery and tolerating a diet well. Endorsed minor incision pain. Denied drainage or blood coming from the wounds. Denied further abdominal pain. Denied cp, sob, n/v/c/d, fever, chills, headaches, dizziness, lightheadedness. OBJECTIVE: Vital Signs Period Temp Pulse Resp BP Sys/Rios Pulse Ox Last 24 Hr 97.4 F-98.1 F 62-69 18-20 105-114/59-78 100-100 PHYSICAL EXAM GENERAL: The patient is awake, alert, and fully oriented, in no acute distress. Slovenian speaking. HEAD: Normal with no signs of trauma. EYES: PERRL, extraocular movements intact, sclera anicteric, conjunctiva clear. ENT: Oropharynx clear without exudates, moist mucous membranes. NECK: Trachea midline, full range of motion, supple. LUNGS: Breath sounds equal, clear to auscultation bilaterally, no wheezes, no crackles, no accessory muscle use. HEART: Regular rate and rhythm, S1, S2 without murmur, rub. ABDOMEN: Soft, non-tender, nondistended, normoactive bowel sounds, no guarding, no rebound, no masses. Noted laprascopic incision sites are dry, clean, and non- draining. EXTREMITIES: 2+ pulses, warm, well-perfused, no edema. NEUROLOGICAL: Cranial nerves II through XII grossly intact. 5/5 muscle strength bilaterally upper and lower extremities. PSYCH: Normal mood, normal affect. SKIN: Warm, dry, normal turgor, no rashes or lesions noted. LABS Laboratory Results - last 24 hr 11/15/19 16:45 Blood Type A POSITIVE HOSPITAL COURSE: Bennett Cui is a 59 year old female with no known past medical history admitted to for biliary colic. Patient had RUQ U/S noting cholelithasis. Pre-op Rod score 0.0%, RCRI 0 points. Patient was taken for cholecystectomy with Dr. Brody. Received pre-op and post-op antibiotics. Patient was stable post-op and will follow up with general surgery outpatient. Patient was restarted on her home medications for H.pylori by day of discharge. Patient was encouraged to follow up with her PCP and general surgeon. Was informed of the plan, was in agreeement and reiterated the plan. Patient was discharged in stable medical condition. Date of Admission:11/14/19 Date of Discharge: 11/16/19 Minutes to complete discharge: 35 Discharge Summary Problems reviewed: Yes Reason For Visit: RUQ ABD PAIN, NAUSEA & VOMITTING, CHOLELITHIASIS Condition: Stable - Instructions Diet, Activity, Other Instructions: You were admitted due to having pain in your abdomen. You were found to have a blockage in your gallbladder that required surgery. You had your gallbladder removed with the surgeon. MEDICATIONS START taking Zofran 4mg up to three times a day only as needed if you have nausea. Continue taking all of your home medications as prescribed. Resume taking your amoxicillin, clarithomycin, and lansoprazole. REFERRALS Please follow up with your primary care physician, Giselle Recio, within 1 week. Please follow up with the surgeon, Dr. Augustus Brody, within 1 week. SPECIAL INSTRUCTIONS Do not perform any strenuous activities until following up with the surgeon. Keep the incision areas from the surgery dry and follow up with the surgeon for further management. If you have any symptoms of inability to eat, fevers, increasing abdominal pain , vomiting, lightheadedness, chest pain, shortness of breath, bleeding or pus from the wounds, or any other general feelings of unwellness, please call 911 or go to your nearest emergency room. Referrals: Giselle Recio [Primary Care Provider] - 1 Week Augustus Brody MD [Staff Physician] - 1 Week Disposition: HOME - Home Medications Comprehensive Discharge Medication List: Ambulatory Orders Amoxicillin - [Amoxicillin 500mg Capsule -] 500 mg PO BID 11/14/19 Clarithromycin 500 mg PO BID 11/14/19 Lansoprazole [Prevacid -] 30 mg PO BID 11/14/19 Ondansetron [Zofran -] 4 mg PO TID PRN #9 tablet 11/16/19 Problem List - Problems (1) Abdominal pain Code(s): R10.9 - UNSPECIFIED ABDOMINAL PAIN (2) Cholecystitis Code(s): K81.9 - CHOLECYSTITIS, UNSPECIFIED (3) Cholelithiases Code(s): K80.20 - CALCULUS OF GALLBLADDER W/O CHOLECYSTITIS W/O OBSTRUCTION Qualifiers: Cholelithiasis location: gallbladder Cholecystitis presence: without cholecystitis Biliary obstruction: without biliary obstruction Qualified Code(s): K80.20 - Calculus of gallbladder without cholecystitis without obstruction (4) Nausea and vomiting Code(s): R11.2 - NAUSEA WITH VOMITING, UNSPECIFIED Qualifiers: Vomiting type: unspecified Vomiting Intractability: non-intractable Qualified Code(s): R11.2 - Nausea with vomiting, unspecified (5) RUQ pain Code(s): R10.11 - RIGHT UPPER QUADRANT PAIN This patient is new to me today: No Emergency Visit: Yes ED Registration Date: 11/14/19 Care time: The patient presented to the Emergency Department on the above date and was hospitalized for further evaluation of their emergent condition. Critical Care patient: No - Discharge Referral Referred to [facility] Med P.C.: No
--- NOTE | 2019-11-18 17:45 | PN ---
Teaching Attending Note Name of Resident: Augustus Rodrigez ATTENDING PHYSICIAN STATEMENT I saw and evaluated the patient. I reviewed the resident's note and discussed the case with the resident. I agree with the resident's findings and plan as documented. Seen and examined; please see resident note for further historical information. I personally verified all [place] historical information and exam findings. Personally interpreted all imaging and diagnostics and reviewed appropriate consults. I reviewed all labs and vital signs as per resident note and EMR as documented. I agree with the above assessment and plan unless supplemented by myself in the following. 10 item review of systems completed and is negative aside from as discussed in the subjective data in my own/the resident documentation. VS, labs, imaging reviewed NAD, AAO, resting comfortably in bed. RRR s1/2 no mgr Normal muscle tone, moves all 5 extremities with normal apparent strength Neck is supple, trachea midline, no haydee LN Lungs CTAB with sym expansion NT ND +BS no haydee organomegaly CN2-12 wnl; no FND NC AT EOMI PERRLA Normal mood, appropriate behavior, euthymic affect No skin breakdown or rashes noted; postoperative site is clean dry and intact Hospital course: Patient was admitted by the medicine service for suspected cholecystitis. The patient was taken to the operating room by Dr. Brody and he was successful in performing the cholecystectomy. She was cleared from a surgical standpoint for discharge and may follow-up with his office in 1 to 2 weeks. They are on antibiotics per surgical request. Infectious disease did see them secondary to the agent of choice. Patient initially had mildly elevated LFTs were trended down with no elevated bilirubin or worsening hepatobiliary symptoms with her presenting symptoms resolved postoperatively. Remains in good spirits. Follow- up as indicated Agree with discharge planning and instructions as indicated in resident discharge note. Full code
--- NOTE | 2019-11-19 16:13 | PATH ---
Surgical Pathology Report Patient Name: MAGEN MERLOS Med. Rec. #: [id number] /Age/Gender: 1960 (Age: 59) / F Account: [id number] [facility] Taken: 11/15/2019 Received: 11/16/2019 Reported: 11/19/2019 Physicians: Augustus Brody M.D. Specimen(s) Received GALLBLADDER Clinical History Right upper quadrant pain, nausea, vomiting, cholelithiasis Final Diagnosis GALLBLADDER, LAPAROSCOPIC CHOLECYSTECTOMY: CHRONIC CHOLECYSTITIS WITH CHOLELITHIASIS. Electronically Signed Amy Hay M.D. Gross Description Received in formalin, labeled "gallbladder," is a 7.7 x 3.0 x 2.2 cm. gallbladder with a 0.2 cm. in length portion of cystic duct attached. The outer surface is gallegos-rivas and varies from smooth to shaggy. The lumen contains green, tenacious bile as well as 2 yellow, irregular choleliths measuring 1.4 and 1.7 cm in greatest dimension. The mucosa is brown and velvety. The wall of the gallbladder averages 0.2 cm. in thickness. [employer] Teacher sections are submitted in one cassette. /11/16/2019 saudi11/16/2019
== END 2019-11-16 13:46 | disposition home or self-care (01) | DRG 419 ==
LOC: JER 16:53 → JERBED 21:28 → J7W 11-15 14:26
PROVIDERS: ADMIT Internal Medicine; ATTEND Internal Medicine
PROC: 3E1M38Z Irrigation of Peritoneal Cavity using Irrigating Substance, Percutaneous Approach (ICD-10-PCS; 2019-11-15)
PROC: 0FT44ZZ Resection of Gallbladder, Percutaneous Endoscopic Approach (ICD-10-PCS; principal; 2019-11-15 11:00)
DX: K80.00 Calculus of gallbladder with acute cholecystitis without obstruction (principal); K59.09 Other constipation; R10.11 Right upper quadrant pain; R11.2 Nausea with vomiting, unspecified
CPT/HCPCS: 36415; 71045-TC-FY; 76705-TC; 80053; 81003; 82962; 83690; 83735; 84100; 85025; 85610; 85730; 86850; 86900; 86901; 88304-TC; 93005; 93010; 94760; 99285-25; J0131; J7030